=== PATIENT | male | born 1965 | race African-American/Black ===

== ENCOUNTER 2017-11-12 10:03 | Emergency (ER) | payer MEDICAID ==
[~2017-11-12] VITALS: Ht 180.3 cm; Wt 91.0 kg
[~2017-11-12 10:03] MED LIST: HYDR12.54 PO
[2017-11-12] MEDS ORDERED: LIDOCAINE HCL 1% 20ML VIAL (Pyxis) INJ INFIL ONE (12:00)
[2017-11-12] MEDS ORDERED: LIDOCAINE HCL/PF 1% 10 MG/ML 5ML VIAL IJ NR (12:03)
[2017-11-12 13:12] VITALS: BP 179/109
== END 2017-11-12 13:16 | disposition home or self-care (01) ==
LOC: ER 10:34
DX: L72.3 Sebaceous cyst (principal); I10 Essential (primary) hypertension; M54.30 Sciatica, unspecified side
CPT/HCPCS: 10060; 99283; J3490; Z7610

== ENCOUNTER 2022-09-08 11:38 | Emergency (ER) | payer MEDICAID, OTHER ==
[~2022-09-08] VITALS: Ht 182.9 cm; Wt 91.0 kg
[2022-09-08 11:43] VITALS: BP 181/92
[2022-09-08] MEDS ORDERED: LIDOCAINE HCL/EPINEPHRINE 1%-EPI 1:100,000 20 ML VIAL INFIL ONE (13:00)
[2022-09-08] MEDS ORDERED: LIDOCAINE HCL/EPINEPHRINE 1%-EPI 1:100,000 30 ML VIAL INFIL NR (13:15)
== END 2022-09-08 14:22 | disposition home or self-care (01) ==
LOC: ER 11:38
DX: L02.11 Cutaneous abscess of neck (principal); I10 Essential (primary) hypertension; J45.909 Unspecified asthma, uncomplicated
CPT/HCPCS: 10060; 99284; Z7610; J3490

== ENCOUNTER 2022-09-11 08:51 | Emergency (ER) | payer OTHER ==
[~2022-09-11] VITALS: Ht 175.3 cm; Wt 84.0 kg
[2022-09-11 09:20] VITALS: BP 161/97
== END 2022-09-11 09:39 | disposition home or self-care (01) ==
LOC: ER 08:51
DX: Z48.00 Encounter for change or removal of nonsurgical wound dressing (principal); L02.11 Cutaneous abscess of neck; I10 Essential (primary) hypertension
CPT/HCPCS: 99281; Z7610